=== PATIENT | male | born 1965 | race Caucasian/White ===

== ENCOUNTER 2018-06-08 18:42 | Emergency (ER) | payer OTHER ==
[~2018-06-08] VITALS: Ht 167.6 cm; Wt 65.9 kg
[2018-06-08] MEDS ORDERED: ketorolac trometh. 30mg/ml inj. IV ONE (19:35)
[2018-06-08] MEDS ORDERED: normal saline 1000ML IV soln IVB ONE (19:35)
[2018-06-08 19:40] LABS: CLARITY,URINE CLEAR (Clear); COLOR,URINE ORANGE (Yellow)
[2018-06-08 19:42] LABS: UA COLLECTION TYPE VOIDED
[2018-06-08 20:00] LABS: BACTERIA,URINE 2+ /HPF (Neg); MUCUS STRANDS MODERATE /LPF (Neg); SQUAMOUS EPITHELIAL CELL,UR MODERATE /LPF (FEW); WBC,URINE 0-4 /HPF (0-4)
[2018-06-08 20:16] LABS: BASOPHILS % (AUTO) 0.1 % (0-1); EOSINOPHILS % (AUTO) 0 % (0-6); HEMATOCRIT 44.3 % (42.0-52.0); HEMOGLOBIN 15.2 g/dl (14.0-17.9); LYMPHOCYTES # (AUTO) 0.9 X10'3 (1.1-4.8); LYMPHOCYTES % (AUTO) 5.5 % (21-51); MEAN CORPUSCULAR HEMOGLOBIN 32.5 PG (27.0-31.0); MEAN CORPUSCULAR HGB CONC 34.4 % (33.0-36.5); MEAN CORPUSCULAR VOLUME 94.5 FL (78-98); MEAN PLATELET VOLUME 8.1 FL (7.4-10.4); MONOCYTES # (AUTO) 1.5 X10'3 (0-0.9); MONOCYTES % (AUTO) 9.7 % (2-12); NEUTROPHILS # (AUTO) 13.2 X10'3 (1.8-7.7); NEUTROPHILS % (AUTO) 84.7 % (42-75); PLATELET COUNT 210 X10'3 (140-440); RED BLOOD COUNT 4.69 X10'6 (4.70-6.10); RED CELL DISTRIBUTION WIDTH 12.3 % (11.5-14.5); WHITE BLOOD COUNT 15.6 X10'3 (4.5-11.0)
[2018-06-08 20:20] LABS: ALANINE AMINOTRANSFERASE 19 U/L (12-78); ALBUMIN 3.6 G/DL (3.4-5.0); ALKALINE PHOSPHATASE 66 IU/L (46-116); ANION GAP 12 (8-16); ASPARTATE AMINO TRANSFERASE 19 U/L (10-37); BILIRUBIN,TOTAL 1.1 MG/DL (0.1-1.0); BLOOD UREA NITROGEN 14 MG/DL (7-18); BUN/CREATININE RATIO 13.1 (5.4-32.0); CALCIUM 9.3 MG/DL (8.5-10.1); CHLORIDE 94 MMOL/L (99-107); CREATININE 1.07 MG/DL (0.60-1.10); GLUCOSE 111 MG/DL (70-104); SODIUM 135 MMOL/L (135-145); TOTAL CARBON DIOXIDE 29.5 MMOL/L (24-32); TOTAL PROTEIN 7.3 G/DL (6.4-8.2); eGFR 73 ML/MIN
[2018-06-08 20:25] LABS: POTASSIUM 2.8 MMOL/L (3.5-5.1)
[2018-06-08] MEDS ORDERED: CIPR-259 PO (20:29)
[2018-06-08 20:30] VITALS: BP 126/72
[2018-06-08] MEDS ORDERED: potassium Cl oral solution 20 MEQ/15 ML PO ONE (20:30)
== END 2018-06-08 21:11 | disposition home or self-care (01) ==
LOC: ER 18:45
DX: N30.00 Acute cystitis without hematuria (principal); E87.6 Hypokalemia; I10 Essential (primary) hypertension; Z88.8 Allergy status to other drugs, medicaments and biological substances; Z79.2 Long term (current) use of antibiotics
CPT/HCPCS: 36415; 74176; 80053; 81001; 85025; 96374; 99284; J1885; J7030